=== PATIENT | female | born 1970 | race Caucasian/White ===

== ENCOUNTER 2017-02-13 18:23 | Emergency (ER) | payer OTHER ==
--- NOTE | ~2017-02-13 | CT2 ---
[facility] A Service of [facility] RADIOLOGY TEXT RESULTS PATIENT: AMADO BROWN LOCATION: SED : 70 UNIT #: [id number] AGE: [address]: BABAR VARMA PA-C SEX: F ORDER DR: [id number] [address] [address] [id number] MR#: [id number] Acc #: [id number] NAME: AMADO BROWN. : 1970 SEX: F STUDY DATE/TIME: 02/13/2017 19:12 UNIT: SED ROOM: STUDY DESCRIPTION: CT Abd and Pelv W Cont Attending Physician: Babar Varma Pa-C Ordering Physician: Physician Non-Staff Primary Care Physician: Primary Care Physician No MEDICAL IMAGING REPORT This report is preliminary unless electronic signature is present. EXAM CT abdomen and pelvis with IV contrast HISTORY Low abdomen pain and rectal pain and bleeding for [address] exam was performed with one or more of the following radiation dose reduction techniques: automatic exposure control, adjustment of mA and/or kV according to patient size, and iterative reconstruction. FINDINGS CT abdomen and pelvis was performed with IV contrast. CT ABDOMEN: The liver, spleen, pancreas, kidneys, and adrenal glands are unremarkable. Cholecystectomy. Normal caliber abdominal aorta. No ascites. No adenopathy. No bowel dilatation. CT PELVIS: Normal appendix. No free fluid. Hysterectomy. Urinary bladder is normal. No bowel dilatation or wall thickening. No inflammatory changes. IMPRESSION 1. No acute findings in the abdomen or pelvis. 2. No inflammatory changes or free fluid. 3. Cholecystectomy and hysterectomy. Dictated by... Monty Prater M.D. THIS IS AN ELECTRONICALLY VERIFIED REPORT Monty Prater M.D. at 02/14/2017 1:29 PM [facility] A Service of [facility] RADIOLOGY TEXT RESULTS PATIENT: AMADO BROWN LOCATION: SED : 70 UNIT #: [id number] AGE: [address]: BABAR VARMA PA-C SEX: F ORDER DR: Laura TD: 02/14/2017 09:09 JOB #: [id number] MEDICAL IMAGING REPORT Page 1 of 1
[~2017-02-13 18:23] MED LIST: CEFDINIR125 MG/5 M; IBUPROFEN PO; INDERAL LA PO; LISINOPRIL PO; LORTAB 7.51 TAB 7.5/ PO; MOBIC PO; NAPROSYN500 MG PO; NEURONTIN100 MG; NO MEDICATIONS; NORCO 10-325 TA1 TAB PO; NORCO 5/325 TAB1 TAB PO; NORCO1 TAB 10/3; NORFLEX100 M1 DOB; PHENERGAN25 M1 PO; PREDNISONE PO; ROBAXIN 750750 MG PO; SUDAFED PO; TRAMADOL HCL50 M2 PO; VICODIN 5/500 T1 TAB PO; ZOFRAN ODT4 MG/UDTAB PO; ZOLOFT PO; [UNRECOGNIZED DRUG - OTHER]
[2017-02-13 18:38] LABS: BASOPHIL# 0.1 X10e3 (0-0.3); BASOPHIL% 1.2 % (0-2.5); EOSINOPHIL# 0.2 X10e3 (0-0.7); EOSINOPHIL% 2.8 % (0.0-7.0); HEMATOCRIT 38.6 % (35.0-45.0); HEMOGLOBIN 12.9 gm/dL (12.0-16.0); LYMPHOCYTE# 2.4 X10e3 (1.0-3.5); LYMPHOCYTE% 35.3 % (17.0-45.0); MEAN CELL VOLUME 94.7 FL (83-96); MEAN CORPUSCULAR HEMOGLOBIN 31.5 PG (28-34); MEAN CORPUSCULAR HGB CONC 33.3 g/dL (30-36); MEAN PLATELET VOLUME 7.1 FL (6.5-11.5); MONOCYTE# 0.6 X10e3 (0-1.0); MONOCYTE% 8.2 % (3.0-12.0); NEUTROPHIL# 3.6 X10e3 (1.5-7.1); NEUTROPHIL% 52.5 % (40-75); PLATELET COUNT 369 X10e3 (140-420); RED BLOOD COUNT 4.08 X10e (3.90-5.30); RED CELL DISTRIBUTION WIDTH 13.2 % (11.0-15.5); WHITE BLOOD COUNT 6.9 X10e3 (4.0-10.5)
[2017-02-13 18:41] LABS: DIFF IND NO
[2017-02-13 18:54] LABS: ALBUMIN SERUM 3.8 g/dL (3.5-5.0); ALKALINE PHOSPHATASE 76 U/L (32-92); ALT (SGPT) 16 U/L (10-40); AST (SGOT) 20 U/L (10-42); BILIRUBIN,TOTAL 0.6 mg/dL (0.2-2.0); BLOOD UREA NITROGEN 15 mg/dL (9-23); BUN/CREATININE RATIO 21.42; CARBON DIOXIDE 29 mmol/L (22-31); CHLORIDE 100 mmol/L (100-111); CREATININE SERUM 0.7 mg/dL (0.6-1.4); GLOM FILT RATE Estimated 103.9 mL/min (>60); GLUCOSE FASTING 109 mg/dL (70-110); POTASSIUM 4.1 mmol/L (3.5-5.1); PROTEIN TOTAL SERUM 6.8 g/dL (6.0-8.3); SODIUM 136 mmol/L (135-145)
[2017-02-13 18:55] LABS: BILIRUBIN, DIRECT <0.1 mg/dL (0.0-0.2); BILIRUBIN,INDIRECT 0.5 mg/dL (0.0-0.9)
[2017-04-07] MEDS ORDERED: HYDROCODON-ACE1 EAC5 PO (09:05)
[2017-04-07] MEDS ORDERED: MULTI VITAMIN1 EACH PO (09:07)
== END 2017-02-13 21:41 | disposition home or self-care (01) ==
LOC: SED 18:23
PROVIDERS: Physician Assistant
DX: K64.4 Residual hemorrhoidal skin tags (principal); Z90.710 Acquired absence of both cervix and uterus; Z90.49 Acquired absence of other specified parts of digestive tract; Z88.2 Allergy status to sulfonamides; Z88.5 Allergy status to narcotic agent; Z91.040 Latex allergy status; Z88.6 Allergy status to analgesic agent
CPT/HCPCS: 36415; 74177; 80048; 80076; 82270; 85025; 99284; Q9967

== ENCOUNTER → 2017-04-14 | Day surgery (SDC) | payer OTHER ==
[~2017-04-14] MED LIST changes: +HYDROCODON-ACE1 EAC5 PO; +MULTI VITAMIN1 EACH PO
--- NOTE | ~2017-04-14 | OR ---
Unit #: [id number] #: [id number] Patient: AMADO BROWN [id number] [facility] [address] [place], [place] [address] [id number] MR#: [id number] NAME: AMADO BROWN. ROOM: Date of Procedure: 04/14/2017 Admission Date: 04/14/2017 Surgeon: Pineda Rendon M.D. : 1970 Attending Physician: Pineda Rendon M.D. OPERATIVE REPORT PREOPERATIVE DIAGNOSES Grade 3 internal hemorrhoids with associated external hemorrhoids. POSTOPERATIVE DIAGNOSES Grade 3 internal hemorrhoids with associated external hemorrhoids. PROCEDURE PERFORMED Open hemorrhoidectomy x3 columns. ANESTHESIA General endotracheal anesthesia. ESTIMATED BLOOD LOSS 30 mL. INDICATIONS FOR PROCEDURE A 46-year-old female, who presented to the office complaining of longstanding hemorrhoidal disease associated with prolapse. She complains of itching, burning, and intermittent bleeding. She has tried multiple nonoperative treatments without success. DESCRIPTION OF PROCEDURE The patient was admitted to [facility], positively identified, transported to the operating room, and after induction of general endotracheal anesthesia, she received antibiotics per SCIP protocol. She was placed in lithotomy position and was prepped and draped in usual sterile fashion. A gentle 2-finger dilatation was performed. Then, the operating anoscope was placed. The 3 hemorrhoidal columns were identified, individually each were grasped with Allis clamps and dissected off the anoderm and mucosa using a Harmonic Scalpel. The mucosal and anoderm defects were then closed with 3-0 chromic running suture. After all 3 columns were excised and there was good hemostasis, the perineal block using 0.5% Marcaine plain was performed. The surgical anal canal was packed with 2% lidocaine jelly and Gel-Foam. Karen-Pad and fishnet panties were placed. The patient was placed in the supine position and transported to recovery in stable condition. Sponges and needle counts were correct x3. The patient tolerated the procedure well and transported to recovery in stable condition. Findings and postoperative instructions were discussed with her family. Dictated by... Unit #: [id number] #: [id number] Patient: AMADO BROWN Pineda Rendon M.D. RS/julianl TD: 04/14/2017 23:25 JOB #: [id number] OPERATIVE REPORT Page 1 of 1 X Pineda Rendon MD PROCEDURE OPERATIVE NOTE
--- NOTE | ~2017-04-14 | EKG ---
PATIENT: AMADO BROWN UNIT #: [id number] Ventricular Rate: 59 BPM Atrial Rate: 59 BPM P-R Interval: 120 ms QRS Duration: 78 ms Q-T Interval: 414 ms QTC Calculation(Bezet): 409 ms P [place]: 61 degrees Calculated R [place]: 47 degrees Calculated T [place]: 35 degrees Diagnosis Line: Sinus bradycardia Diagnosis Line: Otherwise normal ECG Diagnosis Line: When compared with ECG of 11-FEB-2010 21:36, Diagnosis Line: Nonspecific T wave abnormality has replaced Diagnosis Line: inverted T waves in Anterior leads Diagnosis Line: Confirmed by YVONNE AVILES MD ([id number]) on Diagnosis Line: 04/14/2017 3:50:39 PM INTERPRETING MD: STEFAN POWELL
== END | disposition home or self-care (01) ==
LOC: CSUR 10:31
DX: K64.2 Third degree hemorrhoids (principal); K64.4 Residual hemorrhoidal skin tags; I10 Essential (primary) hypertension; Z90.49 Acquired absence of other specified parts of digestive tract; Z90.710 Acquired absence of both cervix and uterus; Z98.51 Tubal ligation status; Z91.040 Latex allergy status; Z88.2 Allergy status to sulfonamides; Z88.8 Allergy status to other drugs, medicaments and biological substances; Z88.6 Allergy status to analgesic agent; Z79.891 Long term (current) use of opiate analgesic; Z79.899 Other long term (current) drug therapy; Z87.891 Personal history of nicotine dependence
CPT/HCPCS: 88304; 93005; J1170; J1885; J2250; J2405; J3010